=== PATIENT | female | born 1975 | race Caucasian/White ===

== ENCOUNTER 2017-09-13 07:25 | Emergency (ER) | payer OTHER ==
[~2017-09-13] VITALS: Ht 162.6 cm; Wt 73.7 kg
[~2017-09-13 07:25] MED LIST: ANTIVERT25 MG PO; FLEXERIL10 MG PO; NORCO 5/3251 TABLET PO; ORTHO TRI-CY1 TABLE1 PO; XANAX0.5 MG PO; ZOLOFT100 MG PO
[2017-09-13] MEDS ORDERED: CLARITIN10 M3 PO (10:16)
[2017-09-13] MEDS ORDERED: TESSALON PERLE100 MG PO (10:16)
[2017-09-13 10:26] VITALS: BP 112/68
== END 2017-09-13 10:31 | disposition home or self-care (01) ==
LOC: EME 07:25
PROVIDERS: Physician Assistant Medical
DX: J06.9 Acute upper respiratory infection, unspecified (principal)
CPT/HCPCS: 71046; 87502; 99281; 99284